=== PATIENT | female | born 1990 | race Caucasian/White ===

== ENCOUNTER → 2021-11-09 | Outpatient (CLI) | payer OTHER ==
[~2021-11-09] MED LIST: DDAVP; LISINOPRIL20 MG PO; SPRINTEC 28 DA1 EACH PO
[2021-11-09 10:43] LABS: BUN/CREATININE RATIO 19 (0-10)
== END ==
LOC: OPSV2 08:00
PROVIDERS: Surgery
DX: Z01.818 Encounter for other preprocedural examination (principal)
CPT/HCPCS: 36415; 80048; 93005

== ENCOUNTER → 2021-11-17 | Day surgery (SDC) | payer OTHER ==
[~2021-11-17] MED LIST changes: +PERCOCET 5-3251 EACH PO; +SENNA S TABLET1 EACH PO
== END | disposition home or self-care (01) ==
LOC: OR 06:26
DX: K43.2 Incisional hernia without obstruction or gangrene (principal); I10 Essential (primary) hypertension; E11.9 Type 2 diabetes mellitus without complications; E23.2 Diabetes insipidus; Z86.16 Personal history of COVID-19; Z53.31 Laparoscopic surgical procedure converted to open procedure; Z88.8 Allergy status to other drugs, medicaments and biological substances; Z91.018 Allergy to other foods
CPT/HCPCS: 84703; C1781; J0690; J1100; J1170; J2250; J2370; J2405; J3010; J7120